=== PATIENT | female | born 1950 | race Caucasian/White ===

== ENCOUNTER 2016-04-19 09:41 | Emergency (ER) | payer BC ==
[2016-04-19 10:11] VITALS: BP 127/73
--- NOTE | 2016-04-19 10:47 | ERNOTE ---
Date of Service: 04/19/16 Time Seen by Provider: 04/19/16 10:39 Stated Complaint: COLD Presenting Symptoms:: cough Source: patient Exam Limitations: no limitations Immunizations: IMMUNIZATION HX Immunizations Up to Date No History of Influenza Vaccine Yes Allergies/Adverse Reactions: Allergies No Known Allergies Allergy (Unverified 04/19/16 10:11) Home Medications: HOME MEDICATIONS Amox Tr/Potassium Clavulanate [Augmentin 875-125 Tablet] 875 mg PO Q12H #20 tab 04/19/16 [Last Taken Unknown] Benzonatate [Tessalon Perle] 100 - 200 mg PO TID PRN #60 capsule 04/19/16 [Last Taken Unknown] Fluticasone Propionate [Flonase] 2 spray NS DAILY #1 inhaler 04/19/16 [Last Taken Unknown] Lisinopril [Zestril] 10 mg PO DAILY 04/19/16 [Last Taken Unknown] Omeprazole 40 mg PO DAILY 04/19/16 [Last Taken Unknown] Promethazine HCl/Codeine [Prometh-Codein 6.25-10 mg/5 ml] 5 ml PO Q6H PRN #120 ml 04/19/16 [Last Taken Unknown] - Pain Score Pain Score #1 Pain Score: 0 - History of Present Ilness Narrative: Ekta is a 65 year old female who presents to the er with c/o nasal congestion / drainage x 2 weeks. also with cough. denies fever. denies cp, dyspnea. states she gets a cold like this every year. Timing: constant, getting worse Severity: moderate Frequency/Possible Cause: Reports: occasional episodes Modifying Factors - Improves: Reports: nothing Modifying Factors - Worsens: Reports: lying down Associated Symptoms: Reports: facial pain, nasal congestion, nasal drainage. Denies: chest pain/soreness, cough, shortness of breath, wheezing, dizziness, lightheadedness, earache, headache, sore throat, muscle aches, fever/chills Review of Systems - Review of Systems Constitutional: Present: no symptoms reported EYE: Present: no symptoms reported ENT: Present: nose congestion, nasal drainage Respiratory: Present: cough Cardiology: Present: no symptoms reported Gastrointestinal/Abdominal: Present: no symptoms reported Genitourinary: Present: no symptoms reported Musculoskeletal: Present: no symptoms reported Skin: Present: no symptoms reported Neurological: Present: no symptoms reported Endocrine: Present: no symptoms reported Hematologic/Lymphatic: Present: no symptoms reported Psych: Present: no symptoms reported - Patient's Past Medical History Patient History - Medical: GERD Patient History - Cardiac/Respiratory: Hypertension Patient History - Cancer: No Hx of Cancer Patient History - Surgical Procedures: Tubal Ligation - Social History Smoking Status: Never smoker Have you smoked in the past 12 months: No - Immunizations Immunizations Up to Date: No History of Influenza Vaccine: Yes Physical Exam - Physical Exam General Appearance: Present: wd/wn, alert, no apparent distress Eye Exam: Normal inspection: bilateral Ears, Nose, Throat: Present: nasal congestion, sinus pain/drainage Neck: Present: lymphadenopathy (R), lymphadenopathy (L) Respiratory: Present: no respiratory distress, normal breath sounds, no accessory muscle use, chest nontender, lungs clear Cardiovascular/Chest: Present: regular rate, rhythm, normal peripheral pulses Gastrointestinal/Abdominal: Present: nontender, nondistended, soft Rectal Exam: Present: deferred Back Exam: Present: normal inspection, normal range of motion, no vertebral tenderness Extremity Exam: Present: normal inspection, non-tender, no edema, normal range of motion Neurological Exam: Present: alert, oriented, normal mood/affect Skin Exam: Present: normal color, warm/dry ED Progress - Vital Signs Vital Signs: Vital Signs 04/19/16 10:08 Temperature 35.8 C L Pulse Rate 97 Respiratory 14 Rate Blood Pressure 127/73 O2 Sat by Pulse 95 Oximetry - Progress/Reassessment Chief Complaint: Cough Progress:: Re-examined Departure - Departure Clinical Impression: Cough Sinusitis Qualifiers: Sinusitis location: pansinusitis Chronicity: acute Recurrence: not specified as recurrent Qualified Code(s): J01.40 - Acute pansinusitis, unspecified Disposition: Home self-care Condition: Good Instructions: Sinusitis, Adult, [id number] Additional Instructions: push fluids. do not take cough syrup and drive. Prescriptions: Amox Tr/Potassium Clavulanate [Augmentin 875-125 Tablet] 875 mg PO Q12H #20 tab Benzonatate [Tessalon Perle] 100 - 200 mg PO TID PRN #60 capsule PRN Reason: Cough Fluticasone Propionate [Flonase] 2 spray NS DAILY #1 inhaler Promethazine HCl/Codeine [Prometh-Codein 6.25-10 mg/5 ml] 5 ml PO Q6H PRN #120 ml PRN Reason: Cough
== END 2016-04-19 11:02 | disposition home or self-care (01) ==
LOC: ER 09:41
DX: R05 Cough (principal); J01.40 Acute pansinusitis, unspecified; I10 Essential (primary) hypertension